=== PATIENT | male | born 1960 | race Hispanic/Latino ===

== ENCOUNTER 2018-11-27 07:14 | Outpatient (CLI) | payer OTHER ==
[2018-11-27 10:29] LABS: Hemoglobin 14.4 g/dL (14.0-18.0); Mean Corpuscular HGB CONC 33.9 g/dL (32.0-36.0); Mean Corpuscular Hemoglobin 27.4 pg (27.0-31.0); Mean Corpuscular Volume 80.9 fL (78.0-98.0); Mean Platelet Volume 6.8 fL (7.4-10.4); Platelet Count 284 thou/uL (130-400); RBC Distribution Width 12.9 % (11.5-14.5); Red Blood Cell (RBC) Count 5.26 mill/uL (4.70-6.10); White Blood Cell (WBC) Count 8.7 thou/uL (4.8-10.8)
[2018-11-27 10:35] LABS: INR-International Normal Ratio 0.9; PTT 30.1 SEC (22.9-36.1); Prothrombin Time 12.7 SEC (12.0-14.7)
[2018-11-27 10:51] LABS: Anion Gap 13 mmol/L (10-20); BUN (Urea Nitrogen) 21 mg/dL (8.4-25.7); Calc. Creatinine Clearance 0 mL/min (70-130); Calcium 9.4 mg/dL (7.8-10.44); Carbon Dioxide 27 mmol/L (22-29); Chloride 103 mmol/L (98-107); Estimated GFR-MDRD 67; Glucose 145 mg/dL (70-105); Potassium 3.8 mmol/L (3.5-5.1); Sodium 139 mmol/L (136-145)
[2018-11-27 11:01] LABS: Hemoglobin A1c 7.7 % (4.0-6.0)
[2018-11-27 11:15] LABS: Bilirubin Negative (Negative); Blood, Urine Negative (Negative); Clarity CLEAR (Clear); Glucose, Urine (Dipstick) Negative (Negative); Leukocyte Negative (Negative); Nitrite Negative (Negative); Protein, Urine (Dipstick) 30 mg/dL (Neg-Trace); Specific Gravity, Urine 1.014 (1.002-1.036)
[2018-11-27 11:18] LABS: Bacteria/HPF None Seen HPF (None Seen); Hyaline Casts/LPF 0-3 HYALINE CAST LPF (0-3 Hyaline); Pathc Cast-AUWi Flag 0.14 (0-2.49); RBC/HPF 0-3 HPF (0-3); Squamous Epithelial 0-3 HPF (0-3); WBC/HPF None Seen HPF (0-3)
--- NOTE | 2018-11-27 17:09 | EKG ---
Test Reason : Blood Pressure : / mmHG Vent. Rate : 062 BPM Atrial Rate : 062 BPM P-R Int : 214 ms QRS Dur : 080 ms QT Int : 396 ms P-R-T Axes : 028 -13 001 degrees QTc Int : 401 ms Sinus rhythm with 1st degree A-V block Anterior infarct , age undetermined Abnormal ECG No previous ECGs available Confirmed by DR. Mray PADILLA ([id number]) on 11/27/2018 5:08:57 PM Referred By: JAI Confirmed By:DR. Mary PADILLA
== END 2018-11-27 07:15 | disposition home or self-care (01) ==
LOC: LABBT 07:14
PROVIDERS: ATTEND Urology
DX: Z01.818 Encounter for other preprocedural examination (principal); N47.6 Balanoposthitis
CPT/HCPCS: 80048; 81001; 83036; 85027; 85610; 85730; 87086; 93005; 93010

== ENCOUNTER 2018-12-10 07:18 | Day surgery (SDC) | payer OTHER ==
[2018-11-27 09:34] VITALS: BMI 28.8
[2018-12-10] MEDS ORDERED: Bupivacaine 0.25% HCL 30 ML VIAL ONE (08:07)
[2018-12-10] MEDS ORDERED: CEFAZOLIN 2 GM/50 ML BAG ONE (09:17)
[2018-12-10] MEDS ORDERED: Fentanyl 100 MCG/2 ML VIAL ONE (09:54)
--- NOTE | 2018-12-10 13:07 | OP ---
DATE OF PROCEDURE: 12/10/2018 PRIMARY CARE PHYSICIAN: Dr. Gerardo. PREOPERATIVE DIAGNOSES: A 58-year-old male with history of diabetes, balanoposthitis. POSTOPERATIVE DIAGNOSES: A 58-year-old male with history of diabetes, balanoposthitis. PROCEDURE PERFORMED: Circumcision. ANESTHESIA: LMA. COMPLICATIONS: None apparent. DISPOSITION: To recovery room in stable condition. SPECIMEN: Previous foreskin for permanent. EBL: Minimal. IV FLUIDS: 800 mL. INDICATIONS FOR PROCEDURE AND HISTORY: Mr. Raymond is a 58-year-old male with history of diabetes, his most recent hemoglobin A1c is 7.1. He presented for evaluation of circumcision. Physical exam does demonstrate phimosis, somewhat tight if requires some manipulation to retract his foreskin. As he has discomfort, he desired to proceed with circumcision. Risks and complications of the procedure were reviewed with him in detail including, but not limited to, bleeding, pain, infection, injury to adjacent organs, chronic pain, and penile curvature. All questions were answered to his satisfaction and desired to proceed. DESCRIPTION OF PROCEDURE: After an informed consent was signed, the patient was taken to the operating room, placed in a supine position. Genital area was formally prepped and draped and broad-spectrum antibiotics were provided. At this time, we inspected his foreskin, which demonstrated again tight phimosis. With some manipulation, his foreskin was reduced. There was a frenular adhesion causing some chordee. We marked the foreskin at the level of the coronal sulcus, we then reduced his frenular adhesion with hemostat and excised with Metzenbaum scissors. At this time, the ring of foreskin was marked just distal to the coronal sulcus. The ring of foreskin was then isolated and divided with a 15 blade. Using electrocautery , the redundant foreskin was excised. We obtained good hemostasis circumferentially in the dartos fascia with intermittent cautery as needed. We utilized 2-0 and 3 -0 chromic for interrupted stitch reapproximating the foreskin. A frenular stitch was placed. At the level of the frenular adhesion in the glans, we approximated the defect with 3-0 chromic. Good hemostasis was noted with no evidence of hematoma and active bleeding appreciated. Bacitracin ointment with Vaseline gauze was placed and pressure dressing applied, which he tolerated well. The patient was transferred to the recovery room in stable condition. He is discharged with a short course of [place] 5/325, advised regarding Keflex for a course of 5 days, Colace p.o. b.i.d. p.r.n. He will follow up with me next week for wound check. Job ID: [id number] [id number]
[2018-12-10] MEDS ORDERED: PROPOFOL 200 MG/20 ML VIAL ONE (13:17)
[2018-12-10] MEDS ORDERED: Dexamethasone 20 MG/5 ML VIAL ONE (13:17)
[2018-12-10] MEDS ORDERED: Ondansetron PF 4 MG/2 ML Vial ONE (13:17)
== END 2018-12-10 14:00 | disposition home or self-care (01) ==
LOC: SDC 07:18
PROVIDERS: ATTEND Urology
PROC: 0VTTXZZ Resection of Prepuce, External Approach (ICD-10-PCS; principal; 2018-12-10)
DX: N47.6 Balanoposthitis (principal); N47.1 Phimosis; N52.9 Male erectile dysfunction, unspecified; I10 Essential (primary) hypertension; E11.9 Type 2 diabetes mellitus without complications; E78.5 Hyperlipidemia, unspecified; E66.9 Obesity, unspecified; Z68.28 Body mass index [BMI] 28.0-28.9, adult; Z79.82 Long term (current) use of aspirin; Z79.4 Long term (current) use of insulin; Z79.899 Other long term (current) drug therapy
CPT/HCPCS: 36416; 88304; J1100; J2405; J2704; J3010; S0020

== ENCOUNTER 2023-07-05 11:19 | Outpatient (CLI) | payer BC ==
[2023-07-05 13:05] LABS: #Basophils 0.1 10x3/uL (0.0-0.2); #Eosinphils 0.2 10x3/uL (0.0-0.5); #Monocytes 0.5 10x3/uL (0.0-1.1); #Neutrophils 7.1 10x3/uL (1.5-8.4); %Basophils 0.9 % (0.0-2.0); %Eosinophils 1.6 % (0.0-6.0); %Lymphocytes 16.2 % (18.0-47.0); %Monocytes 4.9 % (0.0-10.0); %Neutrophils 75.4 % (40.0-75.0); Hematocrit 38.2 % (38.8-50.0); Hemoglobin 12.3 g/dL (13.5-17.5); Mean Corpuscular HGB CONC 32.2 g/dL (32.0-36.0); Mean Corpuscular Hemoglobin 26.6 pg (27.0-33.0); Mean Corpuscular Volume 82.7 fl (81.2-95.1); Mean Platelet Volume 8.6 fl (7.4-10.4); Platelet Count 438 10x3/uL (150-450); Red Blood Cell (RBC) Count 4.62 10x6/uL (4.32-5.72); White Blood Cell (WBC) Count 9.4 10x3/uL (3.5-10.5)
[2023-07-05 13:16] LABS: ALT (SGPT) 26 U/L (8-55); AST (SGOT) 12 U/L (5-34); Albumin 3.7 g/dL (3.4-4.8); Alkaline Phosphatase 149 U/L (40-110); Anion Gap 17 mmol/L (10-20); BUN (Urea Nitrogen) 36 mg/dL (8.4-25.7); Bilirubin, Direct 0.1 mg/dL (0.1-0.3); Bilirubin, Total 0.3 mg/dL (0.2-1.2); Calc. Creatinine Clearance 0 mL/min (70-130); Calcium 8.9 mg/dL (7.8-10.44); Carbon Dioxide 24 mmol/L (23-31); Chloride 104 mmol/L (98-107); Estimated GFR 36; Globulin 2.8 g/dL (2.4-3.5); Glucose 141 mg/dL (80-115); Potassium 4.7 mmol/L (3.5-5.1); Protein, Total 6.5 g/dL (5.8-8.1); Sodium 140 mmol/L (136-145)
== END 2023-07-05 11:20 | disposition home or self-care (01) ==
LOC: LABBT 11:19
PROVIDERS: ATTEND Surgery
DX: Z01.818 Encounter for other preprocedural examination (principal); K80.20 Calculus of gallbladder without cholecystitis without obstruction
CPT/HCPCS: 80053; 80076; 85025; 93005; 93010

== ENCOUNTER 2023-07-12 06:08 | Observation (INO) | payer BC ==
[2023-07-12] MEDS ORDERED: cefOXitin 2 GM VIAL ONE (06:17)
[2023-07-12] MEDS ORDERED: Sodium Chloride 0.9% 100 ML ONE (06:17)
[2023-07-12] MEDS ORDERED: Lidocaine 1% MPF 2 ML VIAL ONE (06:18)
[2023-07-12] MEDS ORDERED: fentaNYL 50 mcg/mL 1 mL Vial ONE ×2 (06:30→10:16)
[2023-07-12] MEDS ORDERED: SUGAMMADEX SODIUM 200 MG/2 ML VIAL ONE (06:30)
[2023-07-12] MEDS ORDERED: Bupivacaine 0.25% HCL 30 ML VIAL ONE (06:58)
[2023-07-12] MEDS ORDERED: EPINEPHrine 1 MG/ML AMP ONE (06:58)
[2023-07-12] MEDS ORDERED: Indocyanine Green 25 MG/10 ML VIAL ONE (06:59)
[2023-07-12] MEDS ORDERED: Sevoflurane 250 ML INH ANEST BOTTLE ONE (07:26)
[2023-07-12] MEDS ORDERED: Rocuronium Bromide 10 MG/ML (10ML VIAL) ONE (07:46)
[2023-07-12] MEDS ORDERED: Succinylcholine 200 MG/10 ml SYRINGE FS ONE (07:46)
[2023-07-12] MEDS ORDERED: PROPOFOL 200 MG/20 ML VIAL ONE (07:46)
[2023-07-12] MEDS ORDERED: Lidocaine 1% PF 5 ML VIAL ONE (07:46)
[2023-07-12] MEDS ORDERED: fentaNYL PF 100 MCG/2 ML SYRINGE ONE (09:46)
[2023-07-12] MEDS ORDERED: Ondansetron PF 4 MG/2 ML Vial ONE (09:57)
[2023-07-12] MEDS ORDERED: Labetalol HCl 100 MG/20 ML VIAL ONE (10:10)
[2023-07-12] MEDS ORDERED: Losartan/Hydrochlorothiazide 100 mg/25 mg Tablet PO SCH (12:15)
[2023-07-12] MEDS ORDERED: HYDROcodone/Acetaminophen 10/325 mg Tablet PO PRN ×2 (13:28)
[2023-07-12] MEDS ORDERED: Glucagon 1 MG/ML KIT IM PRN (13:28)
[2023-07-12] MEDS ORDERED: Calcium Carbonate 500 MG ChewTAB PO PRN (13:28)
[2023-07-12] MEDS ORDERED: Morphine 2 MG/ML VIAL SLOW IVP PRN (13:28)
[2023-07-12] MEDS ORDERED: Dextrose 5% in Water 1,000 ML IV PRN (13:28)
[2023-07-12] MEDS ORDERED: hydrALAZINE 20 MG/ML VIAL SLOW IVP PRN (13:28)
[2023-07-12] MEDS ORDERED: Promethazine HCl 25 MG/ML VIAL IM PRN (13:28)
[2023-07-12] MEDS ORDERED: Morphine 4 MG/ML VIAL SLOW IVP PRN (13:28)
[2023-07-12] MEDS ORDERED: Dextrose 50% Abboject 50 ML SYRINGE SLOW IVP PRN (13:28)
[2023-07-12] MEDS ORDERED: Mag-Al 1200 mg/1200 mg/30 ML UDCUP PO PRN (13:28)
[2023-07-12] MEDS ORDERED: Ipratropium/Albuterol 3 ML NEB NEB PRN (13:28)
[2023-07-12] MEDS ORDERED: Ondansetron PF 4 MG/2 ML Vial IVP PRN (13:28)
[2023-07-12] MEDS ORDERED: D5 1/2 NS w/20 mEq KCL 1,000 ML IV SCH (13:30)
[2023-07-12] MEDS ORDERED: Morphine 2 MG/ML VIAL ONE (13:54)
[2023-07-12] MEDS ORDERED: Piperacillin/Tazobactam 3.375 GM in Sodium Chloride 0.9% 100 ML IVPB SCH (14:00)
[2023-07-12 17:08] VITALS: BMI 24.8
[2023-07-12] MEDS: Ketorolac Tromethamine 30 MG/ML VIAL IVP SCH ×2 (17:23→23:49)
[2023-07-12] MEDS: HumaLOG 300 UNITS/3 ML VIAL SC PRN ×2 (18:31→21:26)
[2023-07-12] MEDS: Sodium Chloride 0.9% 1,000 ML IV SCH (18:31)
[2023-07-12] MEDS: Famotidine 20 MG TAB PO SCH (20:34)
[2023-07-12] MEDS: Famotidine/PF 20 mg/2ml Vial SLOW IVP SCH (20:34)
[2023-07-13] MEDS: Sodium Chloride 0.9% 1,000 ML IV SCH ×2 (02:20→11:38)
[2023-07-13] MEDS: Ketorolac Tromethamine 30 MG/ML VIAL IVP SCH ×2 (07:16→12:34)
[2023-07-13 07:26] LABS: #Basophils 0.1 thou/uL (0.0-0.2); #Eosinphils 0.1 thou/uL (0.0-0.7); #Monocytes 1.1 thou/uL (0.11-0.59); #Neutrophils 10.4 thou/uL (1.40-6.50); %Basophils 0.4 % (0.0-1.0); %Eosinophils 0.5 % (0.0-10.0); %Lymphocytes 10.1 % (21.0-51.0); %Monocytes 8.7 % (0.0-10.0); %Neutrophils 79.8 % (42.0-75.0); Hemoglobin 10.6 g/dL (14.0-18.0); Mean Corpuscular HGB CONC 33.1 g/dL (32.0-36.0); Mean Corpuscular Hemoglobin 27.5 pg (27.0-31.0); Mean Corpuscular Volume 83.1 fl (78.0-98.0); Mean Platelet Volume 8.8 fL (7.4-10.4); Platelet Count 326 10x3/uL (130-400); RBC Distribution Width 13.2 % (11.5-14.5); Red Blood Cell (RBC) Count 3.85 mill/uL (4.70-6.10)
[2023-07-13 07:48] LABS: ALT (SGPT) 49 U/L (8-55); AST (SGOT) 37 U/L (5-34); Alkaline Phosphatase 86 U/L (40-110); Anion Gap 11 mmol/L (10-20); BUN (Urea Nitrogen) 28 mg/dL (8.4-25.7); Bilirubin, Total 0.6 mg/dL (0.2-1.2); Calc. Creatinine Clearance 48 mL/min (70-130); Calcium 8.1 mg/dL (7.8-10.44); Carbon Dioxide 24 mmol/L (23-31); Chloride 104 mmol/L (98-107); Estimated GFR 41; Globulin 2.5 g/dL (2.4-3.5); Glucose 130 mg/dL (80-115); Potassium 3.7 mmol/L (3.5-5.1); Protein, Total 5.5 g/dL (5.8-8.1); Sodium 135 mmol/L (136-145)
[2023-07-13] MEDS: Famotidine/PF 20 mg/2ml Vial SLOW IVP SCH (08:54)
[2023-07-13] MEDS: Famotidine 20 MG TAB PO SCH (08:54)
[2023-07-13 12:30] VITALS: BP 156/88; TEMP 98.3
== END 2023-07-13 11:50 | disposition home or self-care (01) ==
LOC: SDC 06:08 → SURG A 14:31
PROVIDERS: ADMIT Surgery; ATTEND Surgery
PROC: 0FT44ZZ Resection of Gallbladder, Percutaneous Endoscopic Approach (ICD-10-PCS; principal; 2023-07-12)
DX: K80.12 Calculus of gallbladder with acute and chronic cholecystitis without obstruction (principal); I10 Essential (primary) hypertension; E78.5 Hyperlipidemia, unspecified; E11.9 Type 2 diabetes mellitus without complications; Z79.84 Long term (current) use of oral hypoglycemic drugs; Z79.899 Other long term (current) drug therapy
CPT/HCPCS: 36415; 36416; 80053; 85025; 88304; C1776; C1889; J0171; J0694; J1650; J1815; J1885; J2272; J2405; J2543; J2704; J3010; J3480; J3490; J7050; S0020

== ENCOUNTER 2025-05-18 11:24 | Outpatient (CLI) | payer BC | END 2025-05-18 11:25 | disposition home or self-care (01) | LOC: SCSRAD 11:24 | PROVIDERS: ATTEND Physician Assistant | DX: L03.116 Cellulitis of left lower limb (principal); M19.072 Primary osteoarthritis, left ankle and foot ==